=== PATIENT | male | born 1945 | race Caucasian/White ===

== ENCOUNTER 2018-10-26 08:58 | Day surgery (SDC) | payer OTHER ==
[~2018-10-26] VITALS: Ht 188 cm; Wt 142.5 kg
[2018-10-26] VITALS (7 sets, daily range): BP systolic 93–132; BP diastolic 50–74
[~2018-10-26 08:58] MED LIST: ASPI-1026 PO; FLUO-125 PO; FLUO20CA30 PO; HYDR-4068 PO; LISI-613 PO; METF-446 PO; PRAM0.5T12 PO; ROPI1TAB11 PO; SIMV20TA6 PO; SODIUM CHLORIDE 0.9% 1000ML 1,000 ML IV ONE; TRAZ-187 PO
[2018-10-26] MEDS ORDERED: PROPOFOL 10 MG/ML 20ML VIAL IV ONE (11:05)
[2018-10-26] MEDS ORDERED: LIDOCAINE HCL-MPF 2% 5ML VIAL ONE (11:07)
--- NOTE | 2018-10-26 12:05 | NUR ---
ASPIRIN PER Lorri LOTT, RN, PT MAY START ASPIRIN TOMORROW ORDERED BY DR. ARMAS. PT/ INSTRUCTED.
== END 2018-10-26 12:12 | disposition home or self-care (01) ==
LOC: ENDO 08:58 → DAH 08:58 → ENDO 12:12
PROVIDERS: ATTEND Internal Medicine
DX: Z12.11 Encounter for screening for malignant neoplasm of colon (principal); D12.2 Benign neoplasm of ascending colon; D12.3 Benign neoplasm of transverse colon; D12.4 Benign neoplasm of descending colon; K57.30 Diverticulosis of large intestine without perforation or abscess without bleeding; K64.0 First degree hemorrhoids; Z86.010 Personal history of colon polyps; I10 Essential (primary) hypertension; J44.9 Chronic obstructive pulmonary disease, unspecified; E11.9 Type 2 diabetes mellitus without complications; Z68.43 Body mass index [BMI] 50.0-59.9, adult; Z80.0 Family history of malignant neoplasm of digestive organs; E66.01 Morbid (severe) obesity due to excess calories; Z86.73 Personal history of transient ischemic attack (TIA), and cerebral infarction without residual deficits
CPT/HCPCS: 45380; 45385; 82948 ×2; 88305; 93005; A4606; A4649; J2704; J3490; J7030; 45382; 45384